=== PATIENT | male | born 1935 | race Caucasian/White ===

== ENCOUNTER → 2023-11-03 11:18 | Outpatient (REF) | payer OTHER, SELFPAY | LOC: HWRAD 11:18 | PROVIDERS: ATTENDING PHYSICIAN Physician Assistant | DX: R05.1 Acute cough (principal) | CPT/HCPCS: 71046 ==

== ENCOUNTER 2024-01-27 18:55 | Observation (INO) | payer OTHER, SELFPAY ==
[2024-01-27] VITALS (7 sets, daily range): BP systolic 132–194; BP diastolic 78–134; BMI 21.5
[2024-01-27 14:13] LABS: % Basophils 0.1 % (0-2); % Immature Granulocytes 0.1 % (0-0.5); % Lymphocytes 30.1 % (20.5-51.1); % Monocytes 10.3 % (1.7-9.3); % Neutrophils 58.4 % (42.2-75.2); Absolute Eosinophils 0.1 10^3/uL (0-0.7); Absolute Monocytes 0.7 10^3/uL (0.1-0.6); Absolute Neutrophils 3.9 10^3/uL (1.4-6.5); Hematocrit 36.2 % (39.0-52.0); Hemoglobin 12.1 g/dL (13.0-18.0); Mean Corp Hgb Conc. 33.4 g/dL (33.0-37.0); Mean Corpuscular Hgb 30.5 pg (27.0-31.0); Mean Corpuscular Volume 91.2 fL (80.0-94.0); Mean Platelet Volume 9.4 fL (7.4-10.4); Nucleated Red Blood Cells % 0 % (-); Platelet Count 283 10^3/uL (130-400); Red Blood Cell Count 3.97 10^6/uL (4.70-6.10); Red Cell Dist. Width 13.9 % (11.5-14.5); White Blood Cell Count 6.7 10^3/uL (4.8-10.8)
[2024-01-27 14:27] LABS: APTT 28.6 Sec (23.4-35.0)
[2024-01-27 14:40] LABS: ALT (SGPT) 20 U/L (0-50); AST (SGOT) 26 U/L (17-59); Albumin 3.9 g/dl (3.5-5.0); Alkaline Phosphatase 53 U/L (38-126); Blood Urea Nitrogen 22 mg/dl (9-20); Calcium 9.4 mg/dl (8.4-10.2); Carbon Dioxide 33 mmol/L (22-30); Chloride 98 mmol/L (98-107); Glucose 233 mg/dl (70-99); Potassium 4.4 mmol/L (3.5-5.1); Sodium 140 mmol/L (135-145); Total Bilirubin 0.4 mg/dl (0.2-1.3); Total Protein 6.3 g/dl (6.3-8.2); eGFR > 60.00
[2024-01-27 14:52] LABS: Troponin I < 0.012 ng/ml
--- NOTE | 2024-01-27 16:22 | ED.CVA ---
History of Present Illness
General
Chief Complaint: CVA/TIA Symptoms
Source: patient and family
Time Seen by Provider: 01/27/24 15:41
Onset of Stroke Symptoms
Onset of symptoms known: Yes
Date of onset of symptoms: 01/26/24
Time of onset of symptoms: 19:00
History of Present Illness
History of Present Illness:
89-year-old male with past medical history of paroxysmal atrial fibrillation, hypertension, hyperlipidemia, [id number] diabetes presenting to the emergency department for evaluation after family believes he may have had TIAs yesterday and
2 other times over the last 2 weeks. Family reports that last night after finishing dinner around 7 PM and upon getting up from the table family noticed that patient had a right-sided facial droop and right arm and leg weakness which lasted
approximately 5 minutes and then resolved with patient going back to his baseline and has been fine since. Over the last 2 weeks family is noticed similar instances 2 other times with symptoms lasting maybe only 2 to 3 minutes. Family contacted
primary care provider today who recommended patient come to the ER for further evaluation. Patient reports no symptoms at this time and family reports that patient is at his baseline.
Past History
Past History
ED Past Medical History: Arrthythmia, HTN, Hypercholesterolemia and NIDDM
ED Past Surgical History: Appendectomy
Social History
Tobacco: Non-smoker
Alcohol: None
Drug: None
Personal:
Living: with family
Review of Systems
Review of Systems
All Other Systems: ROS reviewed and negative except as documented in HPI and ROS
Phy Exam
Physical Exam
Physical Exam:
GENERAL: Alert , in no apparent distress
EYE: clear conjunctiva
NECK: Supple
ENT: o/p clr, mmm.
CARDIAC: Regular rate and rhythm .
LUNGS: Clear breath sounds bilaterally, no acute respiratory distress, no wheezes/rales/rhonchi
ABDOMEN: Soft, without focal tenderness, no r/g, no cvat
NEUROLOGICAL: Alert and oriented, no focal neuro deficits, MCKEE x 4, no ataxia. 5/5 strength UE/LE b/l
SKIN: Warm and dry, skin intact.
MUSCULOSKELETAL: No edema, well perfused.
PSYCH: Normal and appropriate interaction.
Scores
NIH Stroke Score
Level of Consciousness: 0 - Alert
LOC Questions: 0-Answers both correctly
LOC Commands: 0-Performs both correctly
Best Horizontal Gaze: 0-Normal
Visual Ramon: 0=Normal, no visual loss
Facial Palsy: 0=Normal, symmetrical
Motor - Right Arm: 0=No drift 10 seconds
Motor - Left Arm: 0=No drift 10 seconds
Motor - Right Le-No drift 5 seconds
Motor - Left Le-No drift 5 seconds
Limb Ataxia: 0-Absent
Sensation: 0-Normal
Best Language: 0-No aphasia
Dysarthria: 0-Normal
Extinction and Inattention: 0-No abnormality
Total Score:: 0
Heart Failure Risk
Heart Failure Risk Score: Not Applicable
Heart Score for Chest Pain Patients
STEMI patient?: Not applicable
Withdrawal Assessment of Alcohol
Withdrawal Assessment Completed?: Not applicable
Course
Orders/Labs/Results
Orders:
Orders
01/27/24 13:43
ECG [Electrocardiogram (*1)] Urgent
Reason for Study: TIA/Stroke
01/27/24 13:44
EKG- Treatment ONCE
01/27/24 14:07
Complete Blood Count/With Diff Urgent
Comprehensive Metabolic Panel Urgent
PTT Urgent
Troponin I Urgent
01/27/24 Dinner
Full Liquids
At Your Request: Limited Participation
Does patient need a safe tray?: No
01/27/24 16:17
Aspirin 325 mg PO NOW STA
01/27/24 17:03
CT Head & Neck Angio W/wo IV Urgent
Comment:
Reason For Exam: TIA, right sided weakness
01/27/24 17:46
Labetalol HCl [Trandate] 10 mg IV NOW STA
01/27/24 18:05
Admit/Transfer Patient As Directed
Co-Sign Provider:
Level of Care: Observation services
Assign to:: Telemetry
Physician / Group: Alexander Thompson
Diagnosis: CVA r/o
Reason for Telemetry: Arrhythmia
Date to Stop Telemetry: 01/30/24
Time to Stop Telemetry: 11:00
Reason for Hospitalization: Strokelike symptoms, concern for CVA versus TIA
PRN Pain Medication Management As Directed
May give lesser potent ordered pain med per pt: Yes
preference::
Protocol:: Medication orders for pain may be administered in a
manner that supports deferring to patient preference
when the pt is:
- Requesting an ordered lesser potent pain medication.
Least to most potent pain medications are defined
as: acetaminophen < NSAID < tramadol < opioids
(morphine, oxycodone, hydromorphone).
- Requesting a lesser dose of the same medication IF
ORDERED.
- Requesting a less intrusive route of administration
if both routes are prescribed by the provider (PO <
IV).
01/27/24 18:07
Code Status As Directed
Resuscitation Status: Full Code
01/27/24 18:13
NEUROLOGY CONSULT Routine
Consulting Provider: Manas Parra
Was physician already notified: Yes
Reason for consult: CVA r/o
NIH Stroke Scale As Directed
Directions: Per protocol
Comment: Q4
Neurological Checks As Directed
Frequency: q4h
01/27/24 19:34
Acetaminophen [Tylenol] 650 mg PO Q4HPRN PRN
Bisacodyl [Dulcolax] 10 mg RECTAL [id number] PRN
Docusate W/Senna [Senokot-S] 1 tablet PO BIDPRN PRN
HydrALAZINE [Apresoline] 10 mg IV Q4HPRN PRN
Polyethylene Glycol Powder [Miralax] 17 grams PO DAILYPRN PRN
01/27/24 19:34
Echo 2D MMode Color/Doppler Routine
Reason for Study: AF
Accucheck [Bedside Glucose Monitoring] As Directed
Frequency: AC&HS
Activity As Directed
Activity Level: Out of Bed-Early Mobility
Intake/ Output As Directed
Frequency: Per unit guidelines
Pneumatic Compression Sleeves As Directed
Type: Knee high
Vital Signs As Directed
Frequency: Per unit guidelines
DX Deep Vein Thrombosis Video Routine
01/27/24 20:00
Apixaban [Eliquis] 5 mg PO BID
Metoprolol [Lopressor] 75 mg PO BID
Pantoprazole [Protonix] 40 mg PO BID
01/28/24 06:18
Complete Blood Count/With Diff IN AM
01/28/24 07:30
Insulin Aspart Corrective Mod [Novolog Flexpen-Moderate Resistance] See Protocol SC AC
01/28/24 08:00
Aspirin Chewable [Low Strength Aspirin] 81 mg PO DAILY
Lisinopril [Zestril] 10 mg PO DAILY
01/28/24 18:00
Atorvastatin [Lipitor] 10 mg PO QPM
01/30/24 11:00
DC Protocol for Telemetry ONCE
Abnormal Lab Results
01/27/24 01/27/24
14:07 18:08
RBC 3.97 L 10^6/uL
(4.70-6.10)
Hgb 12.1 L g/dL
(13.0-18.0)
Hct 36.2 L %
(39.0-52.0)
Absolute Monos (auto) 0.7 H 10^3/uL
(0.1-0.6)
Monocytes % 10.3 H %
(1.7-9.3)
Carbon Dioxide 33 H mmol/L
(22-30)
BUN 22 H mg/dl
(9-20)
Glucose 233 H mg/dl
(70-99)
POC Glucose 149 H mg/dl
(70-99)
01/27/24 14:07
01/27/24 14:07
Vital Signs
Initial and Last Documented VS:
Initial Vital Signs
Temp Pulse Resp BP Pulse Ox
98.3 F 66 20 132/91 99
01/27/24 13:37 01/27/24 13:37 01/27/24 13:37 01/27/24 13:37 01/27/24 13:37
Last Documented Vital Signs
Temp Pulse Resp BP Pulse Ox
97.8 F 69 18 166/90 99
01/28/24 07:00 01/28/24 07:00 01/28/24 07:00 01/28/24 07:00 01/28/24 07:00
MDM/Problems Addressed
Differential Diagnosis Includes:
CVA/TIA, hypoglycemia, seizure, electrolyte abnormality, less concern for infection
MDM/Problems Addressed:
89-year-old male presenting to the emergency department for evaluation of possible TIA last night as well as 2 other episodes over the last 2 weeks. Presently asymptomatic. NIH score of 0. No stroke alert was called as symptoms were almost 24
hours ago and patient with NIH score of 0. Symptoms do seem to be somewhat consistent with TIA. Labs were initiated in triage. CT of the head ordered. Will consult with neurology to discuss further workup and potential treatment plan.
Chronic conditions affecting care: Arrhythmia
*Radiology
Radiology exam reviewed: radiology read reviewed
*Pulse Oximetry
Patient hypoxic: no
*EKG
Interpreted by ED Provider?: Yes
Heart Rate: 67
Rate: normal
Rhythm: sinus
[place]: normal axis
Ischemia: T-wave inversion (lateral leads)
*Education Counselor Interpretation
Rate: normal
Rhythm: sinus
*Critical Care Note
Total Time (30-74mins, 75-104mins- exclusive of procedures): Not Applicable
Data Reviewed
Review of Other/Old Records Reveals: Labs and Records
Source: patient, records, spouse and family
Patient Management
Discussion with other providers: Hospitalist
Escalation/DeEscalation of care consider admission/obs:
On multiple reevaluations patient has significant hypertension noted. There is also new T wave inversions in the lateral leads on his EKG. Given his presentation I do have concern for TIA and patient is anticoagulated on Eliquis. Patient also had
2 other incidences in addition to the incident yesterday. I do feel it would be best for patient to be closely monitored with consultation as needed. Labetalol 10 mg IV ordered for current hypertension. Hospitalist team is aware and accepts for
continued evaluation and treatment.
ED Attending Note
-
Portions of this chart may have been created with voice recognition software.� Occasional wrong word or��sound alike� substitutions may have occurred due to the inherent limitations of voice recognition software.
Discharge Plan
Departure
Patient Disposition: Admit
Date of Disposition: 01/27/24
Time of Disposition: 17:46
Presentation/result/management discussed w/ accepting MD/DO: Hospitalist
Discharge Problem:
Brain TIA, Hypertensive urgency
Interventions
Interventions:
*Risk Screen - Suicide Last Done: 01/27/24 20:13
*General Assessment Last Done: 01/27/24 13:37
*Neglect/Abuse Screening Last Done: 01/27/24 16:31
*ED COVID-19 Vaccine History Last Done: 01/27/24 20:13
*Nursing Disposition Last Done: 01/27/24 19:29
ED- Pulmonary Assessment Last Done: 01/27/24 16:15
ED- Neurological Assessment Last Done: 01/27/24 16:15
ED- Cardiac Assessment Last Done: 01/27/24 16:15
ED Swallowing Screen Last Done: 01/27/24 16:15
Discharge Date and Time
Discharge Date/Time: 01/27/24 19:34
[2024-01-27] MEDS: ASPIRIN 325 MG PO (16:33)
[2024-01-27] MEDS: TRANDATE 10 MG IV (17:55)
--- NOTE | 2024-01-27 18:01 | HPS.HSE ---
Family Physician
-
Family Physician: Tali Llanes MD
Chief Complaint
-
Family concern for TIA v CVA; facial droop and right extremity weakness for 5 mins
History of Present Illness
89-year-old male with paroxysmal AF (on Eliquis), NIDDM, HTN, HLD, GERD, s/p appendectomy that presented to the ED today with a complaint of possible strokes versus TIAs that occurred on 01/25, as well as to other times over the past 2 weeks.
History obtained by family in the ED, reportedly finished dinner around 7 PM yesterday and after getting up from the table noticed that the patient had a right-sided facial droop, right arm and leg weakness that lasted approximately 5 minutes.
Symptoms resolved with patient returning to baseline, has felt fine since that point. Similar symptoms occurred twice prior over the last 2 weeks, lasting roughly 2 to 3 minutes per episode. Family has spoke with her PCP today who recommended
coming to the ED for further evaluation. Denied any symptoms while in the ED, family reports that patient is currently at baseline. Hypertensive with BP 194/111 mmHg on arrival, otherwise stable and on room air without fever. Labs with hemoglobin
12.1, glucose 233, bicarb 33 otherwise unremarkable. ECG showed first-degree AVB, LAFB, signs of LVH as well as new T wave inversions in lead I and aVL. Troponin WNL. CTH without contrast, CTA head and neck without any obvious acute findings
including ICH or transcortical CVA on my preliminary read, does show fairly large ventricles. Was given aspirin 325 mg in the ED.
Upon speaking with the family they confirm symptoms previously mentioned, state they believe all 3 episodes have had right-sided deficits. Additionally they state that he has recently became much weaker and his ambulation is more difficult. They
describe a 'shuffling gait' and additionally describe recent urinary incontinence. Denies chest pain, dyspnea, fevers or chills, GI symptoms, urinary issues, bleeding or bruising
Medical History
Past Medical History
Past Medical History: Reports GERD, HTN, Hypercholesterolemia and NIDDM
Past Surgical History: Reports Appendectomy
Social History
Tobacco: Non-smoker
Alcohol: None
Drug: None
Family History
Family History: Not pertinent
Allergies / Home Medications
Allergies reflects when Allergies were last updated in [employer]
Home Medications with original date entered in [employer]
Allergy/Medication List:
Allergies
Allergy/AdvReac Type Severity Reaction Status Date / Time
oxycodone HCl [From Percocet] AdvReac Unknown Pharmacy Verified 01/27/24 13:37
to Review
Home Medications
Actos: 30 mg PO DAILY 10/14/14
metformin 1,000 mg tablet 1,000 mg PO BID 10/14/14
glimepiride 2 mg tablet 1 mg PO QPM 11/01/14
glimepiride 2 mg tablet 2 mg PO DAILY 11/01/14
apixaban 5 mg tablet (Eliquis) 5 mg PO BID #60 tabs 11/03/14
atorvastatin 10 mg tablet 10 mg PO QPM #30 tabs 11/03/14
lisinopril 5 mg tablet 5 mg PO DAILY #0 tabs 11/03/14
metoprolol tartrate 50 mg tablet 75 mg (1.5 x 50 mg) PO BID ##90 11/03/14
pantoprazole 40 mg tablet,delayed release 40 mg PO BID ##60 11/03/14
Review of Systems
-
A 12 point ROS was completed and negative except as noted: Yes
Constitutional: Reports No Symptoms
EENT: Reports No Symptoms
Respiratory: Reports No Symptoms
Cardiac: Reports No Symptoms
Abdomen/GI: Reports No Symptoms
: Reports No Symptoms
Musculoskeletal: Reports No Symptoms
Skin: Reports No Symptoms
Neurological: Reports See HPI
Endocrine: Reports No Symptoms
Hematologic/Lymphatic: Reports No Symptoms
Psych: Reports No Symptoms
Physical Exam
Vital Signs
Vital Signs
Temp Pulse Resp BP Pulse Ox
98.3 F 70 20 163/100 97
01/27/24 13:37 01/27/24 17:55 01/27/24 13:37 01/27/24 17:55 01/27/24 17:00
Physical Exam
General: Well Nourished, No Apparent Distress and Comfortable
HEENT: NormoCephalic, Anicteric and Moist mucous membranes
Respiratory: Clear and Non Labored Respirations; No Wheezes, Rales, Rhonchi or Accessory Resp Muscle Use
Cardiac: S1/S2 and Regular Rhythm; No Tachycardia, Murmur, Rub, Gallop, Peripheral Edema or JVD
GI: Soft, Non Tender, Non Distended, Normal Bowel Sounds and No Hepatosplenomegaly
Musculoskeletal: No Clubbing, No Cyanosis and Normal Gait & Station
Skin: Warm and Dry; No Rash
Neuro: AO x 3, Cranial Nerves Intact and No Sensory Deficits
Psych: Calm
Laboratory Results
-
01/27/24 14:07
01/27/24 14:07
Laboratory Results
APTT 28.6 Sec (23.4-35.0) 01/27/24 14:07
Total Bilirubin 0.4 mg/dl (0.2-1.3) 01/27/24 14:07
AST 26 U/L (17-59) 01/27/24 14:07
ALT 20 U/L (0-50) 01/27/24 14:07
Alkaline Phosphatase 53 U/L (38-126) 01/27/24 14:07
Troponin I < 0.012 ng/ml 01/27/24 14:07
Data Reviewed
-
CT Scan: Image Personally Visualized and interpreted, Discussed with Patient and Discussed with Family
Lab Data: Labs Reviewed by me, Discussed with Patient and Discussed with Family
Impression/Plan
-
#Strokelike symptoms
-Differential diagnoses include TIA/CVA versus hypertensive encephalopathy/PRES vs NPH (see below)
-Not a candidate for interventions such as thrombectomy or tPA as symptoms occurred and was 24 hours ago
-Does have a high ABCD2 score of 5 correlating with moderately high risk for recurrence or new CVA
-Acutely hypertensive with SBP >190 mmHg on arrival, signs of chronic hypertension and LVH on ECG
-He does have atrial fibrillation but is on Eliquis and states he is compliant
-CTH and CTA head and neck seem fairly unremarkable on my prelim read, results pending
-Status post full dose aspirin given in the emergency department
-Current NIHSS near 0
Plan
-Follow-up formal CT head and CTA head and neck reads
-Order MRI brain without contrast to assess for acute CVA
-Start daily baby aspirin empirically, consider high intensity statin if MRI positive
-PRN IV antihypertensives for BP goal reduction 25% over 24-hour
-Increase lisinopril to 10 mg to start tomorrow morning
-Neurochecks and NIHSS every 4 hours
-Neurology consult
-BG goal 140-180
-Consider TTE if MRI positive
#Concern for normal pressure hydrocephalus
#Enlarged cerebral ventricles
#Complaint of shuffling gait and urine incontinence
-Question if his symptoms could be contributed to normal pressure hydrocephalus
-Family does mention that he has recently developed shuffling gait and urine incontinence
-My prelim read of CT head shows what appears to be significantly enlarged ventricles
-Will consider LP while here if the above testing is negative, may consider even a positive
#Paroxysmal AF
-Home medications include metoprolol tartrate twice daily and Eliquis twice
-No known history of ablations or other EP interventions
-Continued on Eliquis, heart rate WNL
#NIDDM
-Home medications include metformin BID, glimepiride BID, pioglitazone
-No known microvascular complications
-Will hold home meds and start ISS with Accu-Cheks
-Blood glucose goal 140�180 for now
#Hypertension
-Suspect systemic complications with signs of LVH on ECG here
-Home medications include metoprolol tartrate and low-dose lisinopril
-Blood pressure management as above
-Plan to uptitrate lisinopril dose while here
#GERD
-No known history of PE or erosive disease
-Home medications include pantoprazole 40 mg twice daily
-No red flag symptoms at this time
DVT prophylaxis: Eliquis
Diet: Regular
CODE STATUS: Full code
[2024-01-27 18:09] LABS: Glucose - Point of Care 149 mg/dl (70-99)
[2024-01-27] MEDS: PROTONIX 40 MG PO (20:40)
[2024-01-27] MEDS: ELIQUIS 5 MG PO (20:40)
[2024-01-27] MEDS: LOPRESSOR 75 MG PO (20:40)
--- NOTE | 2024-01-27 20:45 | W.PN.UPDATE ---
Update Note
Progress Note Update
RN reported to PRINTER TECHNICIAN, patient passed swallow screen, will start on Regular diet
[2024-01-27 20:53] LABS: Glucose - Point of Care 203 mg/dl (70-99)
[2024-01-28 03:17] VITALS: BP 155/75
[2024-01-28 07:00] VITALS: BP 166/90
[2024-01-28 08:05] LABS: % Basophils 0.2 % (0-2); % Eosinophils 2.2 % (0-6); % Immature Granulocytes 0.4 % (0-0.5); % Lymphocytes 29.5 % (20.5-51.1); % Monocytes 13.2 % (1.7-9.3); % Neutrophils 54.5 % (42.2-75.2); Absolute Eosinophils 0.1 10^3/uL (0-0.7); Absolute Lymphocytes 1.6 10^3/uL (1.2-3.4); Absolute Monocytes 0.7 10^3/uL (0.1-0.6); Hematocrit 37.6 % (39.0-52.0); Hemoglobin 13.2 g/dL (13.0-18.0); Mean Corp Hgb Conc. 35.1 g/dL (33.0-37.0); Mean Corpuscular Hgb 30.6 pg (27.0-31.0); Mean Platelet Volume 11.4 fL (7.4-10.4); Nucleated Red Blood Cells % 0 % (-); Platelet Count 194 10^3/uL (130-400); Red Blood Cell Count 4.32 10^6/uL (4.70-6.10); Red Cell Dist. Width 13.8 % (11.5-14.5); White Blood Cell Count 5.5 10^3/uL (4.8-10.8)
[2024-01-28 08:20] LABS: Glucose - Point of Care 315 mg/dl (70-99)
[2024-01-28] MEDS: NOVOLOG FLEXPEN-MODERATE RESISTANCE 7 UNITS SC (08:48)
[2024-01-28] MEDS: LOPRESSOR 100 MG PO (08:51)
[2024-01-28] MEDS: ZESTRIL 30 MG PO (08:51)
[2024-01-28] MEDS: LOW STRENGTH ASPIRIN 81 MG PO (08:52)
[2024-01-28] MEDS: PROTONIX 40 MG PO (08:52)
[2024-01-28] MEDS: ELIQUIS 5 MG PO (08:53)
[2024-01-28 09:13] LABS: Blood Urea Nitrogen 16 mg/dl (9-20); Calcium 9.3 mg/dl (8.4-10.2); Carbon Dioxide 32 mmol/L (22-30); Chloride 98 mmol/L (98-107); Estimated Creatinine Clearance 55 ml/min; Glucose 234 mg/dl (70-99); Magnesium 1.6 mg/dl (1.6-2.3); Potassium 4.1 mmol/L (3.5-5.1); Sodium 143 mmol/L (135-145); eGFR > 60.00
[2024-01-28 11:00] VITALS: BP 147/93
--- NOTE | 2024-01-28 11:06 | W.PN.HOSP.TC ---
Today's Communication/Plan
-
Follow-up MRI brain
Assessment / Plan
Assessment / Plan
#Strokelike symptoms
-Differential diagnoses include TIA/CVA versus hypertensive encephalopathy/PRES vs NPH (see below)
-Does have a high ABCD2 score of 5 correlating with moderately high risk for recurrence or new CVA
-Acutely hypertensive with SBP >190 mmHg on arrival, signs of chronic hypertension and LVH on ECG
-CTH and CTA head and neck seem fairly unremarkable on my prelim read, results pending
-Status post full dose aspirin given in the emergency department
-Current NIHSS near 0, has been so since arrival
-Neurology following
Plan
-Follow-up formal CT head and CTA head and neck reads
-F/U MRI brain without contrast to assess for acute CVA
-C/w daily baby aspirin empirically, consider high intensity statin if MRI positive
-Continue with home antihypertensive regimen
-Neurochecks and NIHSS every 4 hours
-BG goal 140-180
-Consider TTE if MRI positive
#Concern for normal pressure hydrocephalus
#Enlarged cerebral ventricles
#Complaint of shuffling gait and urine incontinence
-Question if his symptoms could be contributed to normal pressure hydrocephalus
-Family does mention that he has recently developed shuffling gait and urine incontinence
-Plan to observe him walk and monitor for magnetic gait consistent with NPH
-Should consider LP as OP
#Paroxysmal AF
-Home medications include metoprolol tartrate twice daily and Eliquis twice
-No known history of ablations or other EP interventions
-Continued on Eliquis, heart rate WNL
#NIDDM
-Home medications include metformin daily and ISS
-No known microvascular complications
-Will hold home meds and start ISS with Accu-Cheks
-Blood glucose goal 140�180 for now
#Hypertension
-Suspect systemic complications with signs of LVH on ECG here
-Home medications include metoprolol tartrate, lisinopril, amlodipine
-Blood pressure management as above
-Plan to uptitrate regimen as needed here
-IV hydralazine ordered for SBP >170
#GERD
-No known history of PE or erosive disease
-Home medications include pantoprazole 40 mg twice daily
-No red flag symptoms at this time
DVT prophylaxis: Eliquis
Diet: Regular
CODE STATUS: Full code
Anticipated Discharge: Within 24 hours
Subjective/Interval History
-
Date of Service: January 28, 2024
Seen and examined at the bedside. No acute events reported overnight. AFVSS this morning.
Denies any recurrence of symptoms overnight. MRI performed, results pending
Denies chest pain, dyspnea, fevers or chills, lightheadedness, paresthesias or weakness, facial droop, aphasia, bleeding or bruising
Objective Data
-
Labs:
Laboratory Results
01/28/24 01/28/24
06:18 08:21
WBC 5.5
Hgb 13.2
Hct 37.6 L
Plt Count 194 D
Sodium Cancelled 143
Potassium Cancelled 4.1
Chloride Cancelled 98
Carbon Dioxide Cancelled 32 H
BUN Cancelled 16
Creatinine Cancelled 0.9
Glucose Cancelled 234 H
Calcium Cancelled 9.3
Vital Signs:
Vital Signs
Temp Pulse Resp BP Pulse Ox
97.8 F 69 18 166/90 99
01/28/24 07:00 01/28/24 07:00 01/28/24 07:00 01/28/24 07:00 01/28/24 07:00
I&O
01/27/24 01/28/24 01/29/24
06:59 06:59 06:59
Output Total 850 / 850
Balance -850 / -850
Review of Systems
-
History Source: Patient
All other systems: Reviewed and negative
Physical Exam
-
General: Well Developed, Well Nourished and No Apparent Distress
HEENT: Normocephalic, Atraumatic and Moist Mucous Membranes
Respiratory: Clear to Auscultation and Non Labored Respirations
Cardiac: Regular Rhythm and S1/S2; Negative Murmur, Rub or Gallop
GI: Soft, Nontender, Nondistended and Normal Bowel Sounds
Musculoskeletal: No Clubbing, No Cyanosis and No Edema
Skin: Warm and Dry; Negative Rash
Neuro: AO x 3, Nonfocal/Grossly Intact and Central Nerve's Intact
Psych: Calm
Data Reviewed
-
MRI: Discussed with Patient
Labs: Labs Reviewed by me and Discussed with Patient
[2024-01-28 12:02] LABS: Glucose - Point of Care 304 mg/dl (70-99)
[2024-01-28] MEDS: NOVOLOG FLEXPEN-HIGH RESISTANCE 10 UNITS SC (13:02)
[2024-01-28] MEDS: NOVOLOG FLEXPEN-MODERATE RESISTANCE SC (13:07)
--- NOTE | 2024-01-28 13:54 | W.DCSUMMARY ---
Discharge Summary
Discharge Data
Date of Admission: 01/27/24
Date of Discharge: 01/28/24
-
Pending Results: No
Hospital Course
89-year-old male with paroxysmal AF on Eliquis, NIDDM, HTN, GERD. Presented with intermittent and recurrent strokelike symptoms (right facial droop, RUE and RLE weakness/paresthesia) each lasting <5 minutes, x 3, over 2-week period. Most recent
episode was dinner the night prior to arrival in the ED. Was told by PCP to come to the ED after symptoms were explained. On arrival CTA without any acute findings including LVO or hemorrhage. NIHSS 0 while in the ED. Was acutely hypertensive
with systolic blood pressure near 200 mmHg. Started as needed IV medications for 25% BP reduction over first 24 hours, which was achieved. Was transition back onto his oral antihypertensive regimen. MRI showed leukoaraiosis send periventricular
pattern consistent with hypertensive/age-related changes. Was started on aspirin for empiric therapy of TIA. Statin dose increased. Blood pressure regimen modified with increasing lisinopril to 40 mg, amlodipine 10 mg nightly. Recommended home
BP recordings, home blood glucose recordings, with records Taken to Next Primary Care Appointment.
Of note, CT and MRI do show some signs of ventricular enlargement. Family mentions complaints of recent shuffling/magnetic gait as well as urinary incontinence. Should consider workup for normal pressure hydrocephalus. Additionally, he does have
a intermittent right hand tremor. NPH workup is unremarkable would consider Parkinson's testing.
Discharge Plan
-
Patient Disposition: Home (Routine Discharge)
Discharge Diagnosis/Procedures: TIA
Hypertensive emergency
Condition: Good
Diet: No added salt
Activity: As tolerated
Driving Restrictions: Not until seen by your Dr
Bathing Restrictions: None
Blood Work: Follow-up with family doctor in 1 to 2 weeks for repeat labs
Others Tests: None
Activity Restrictions/Additional Instructions:
Blood pressure monitoring: Record home blood pressures using a cuff 1-2 times daily, write down the values in a book, and take those with you to your primary care doctor/family doctor's appointment. Allow yourself 15 minutes to rest prior to taking
your blood pressure.
Blood glucose monitoring: Monitor blood glucose after meals and nightly, record values and a booklet, and take them with you to your family doctor appointment
Schedule follow-up appointment with family doctor for within 1 to 2 weeks after discharge from the hospital
Instructions: Transient ischemic attack, High blood pressure emergencies, DASH diet
Referrals:
Tali Llanes MD [Family Provider] -
Additional Discharge Medication Instructions: Start aspirin 81 mg daily
Start amlodipine 10 mg nightly
Increase atorvastatin to 40 mg nightly
Increase lisinopril to 40 mg daily
Continue other medications as currently prescribed. Follow-up with primary care physician for further refills after the first month
Prescriptions:
New
aspirin 81 mg Tablet,Chewable
81 mg PO DAILY 30 Days Qty: 30 0RF
amlodipine 10 mg Tablet
10 mg PO HS 30 Days Qty: 30 0RF
pantoprazole 40 mg Tablet,Delayed Release (Dr/Ec)
40 mg PO BID 30 Days Qty: 60 0RF
atorvastatin 40 mg tablet
40 mg PO HS 30 Days Qty: 30 0RF
lisinopril 40 mg tablet
40 mg PO DAILY 30 Days Qty: 30 0RF
Continued
metformin 1,000 MG tablet
1,000 mg PO DAILY
metoprolol tartrate 100 mg tablet
100 mg PO BID
famotidine 40 mg tablet
40 mg PO DAILY
amlodipine 10 mg tablet
10 mg PO HS
Patient Comments:
01/27/2024: family and pt unsure if pt is taking. Spouse and Family think hes still taking, but pt is unsure.
insulin aspart U-100 [Novolog FlexPen U-100 Insulin] 100 unit/mL (3 mL) insulin pen
0 - 12 sliding scale dose SC AC
Patient Comments:
01/27/2024: Sliding Scale: < 80= 0u; 80-120= 2u; 121-150= 4u; 151-200= 6u; 201-250= 8u; 251-300= 10u; >300= 12u
Eliquis 5 MG tablet
5 mg PO BID Qty: 60 3RF
Discontinued
lisinopril 30 mg tablet
30 mg PO HS
atorvastatin 10 MG tablet
10 mg PO DAILY
Discharge Orders:
Discharge Patient (As Directed); Ordered 01/28/24
Ordered By: Alexander Thompson
Discharge Date and Time
Print Language: LEBANESE
[2024-01-28 15:00] VITALS: BP 120/61
--- NOTE | 2024-01-28 15:05 | CM ---
CM met with Onesimo and his at bedside. They live together in a 2 story home with 1 entry step. 12 steps to the second level with a bathroom and bedrooms. 1st level has a powder room, kitchen, living area. His drives him to doctors
appointments and OP therapy (not current). VN services requested with VN. Referral to be sent via [facility] and Dr. Thompson will order VN services.
LANDRY letter provided, signed and placed on chart. Onesimo's was provided with a copy and questions answered regarding the financial implications of the Observation status.
Plan: Discharge to home with VN.
PCP: Tali Saldivar
[facility]
--- NOTE | 2024-01-29 22:02 | CON.NEURO4 ---
Consultation - Neurology 4
-
CONSULTING PHYSICIAN: Manas Parra MD(Neurology)
REFERRING PHYSICIAN: Hospitalist
DICTATED BY: Manas Parra MD
DATE/TIME OF REQUEST: 01/28/2024
DATE/TIME OF CONSULTATION: 01/28/2024
Reason for Consultation: Right sided weakness
History of Present Illness:
This is a 89 year old right) handed (male who has presented to the hospital with (chief complaint) of right sided weakness. He gives ah/o paroxysmal AF (on Eliquis), NIDDM, HTN, HLD, GERD, s/p appendectomy who had multiple episode of weakness on
01/25, as well as two other times over the past 2 weeks,
who presented to the ED today with a complaint of Right sided weakness
History as per family, he finished dinner around 7 PM yesterday and after getting up from the table they noticed that the patient had a right-sided facial droop, right arm and leg weakness that lasted approximately 5 minutes. Symptoms resolved with
patient returning to baseline, and asymptomatic since that point. Similar symptoms occurred twice over the last 2 weeks,with each episode lasting 2 to 3 minutes per episode. Family has spoke with her PCP today who recommended coming to the ED for
further evaluation. Denied any symptoms while in the ED, family reports that patient is currently at baseline.
Pat Hypertensive with BP 194/111 mmHg on arrival, on room air without fever. Labs revealed hemoglobin 12.1, glucose 233, bicarb 33 .
ECG showed first-degree AVB, LAFB, signs of LVH as well as new T wave inversions in lead I and aVL. Troponin WNL.
CT Head without contrast, CTA head and neck revealed no acute findings but does show large ventricles. Was given aspirin 325 mg in the ED.
. Additionally they state that he has become much weaker and has increasing difficulty walking. They describe a 'shuffling gait' and additionally new urinary incontinence. Denies chest pain, dyspnea, fevers or chills, GI symptoms, urinary issues,
bleeding or bruising
please mention last known well time.
-
Past Medical History: As above
Surgical History: NC
Family History: NC
Social History: Lives at home with his
Allergies: Oxycodone
Home Medications: See addendum
Review of Symptoms:
Patient denies any fever, headache, chest pain, shortness of breath, GI or symptoms.
�Per the HPI.�All systems are reviewed negative except above.
�-
Vital Signs:
The patient has a Temp 97.8 F Pulse 69 Resp 18 BP 166/90 Pulse Ox99
Physical Exam:
The patient is afebrile, heart sounds S1 and S2 are (regular / irregular), and chest is clear to auscultation bilaterally.
- If not clear, describe.
Neurologic Examination:
The patient is awake, alert and oriented x 3. (He is able to follow commands and answer questions appropriately. There is no aphasia or dysarthria. On cranial nerve assessment, pupils are 3 mm bilateral, round and reactive to light and
accommodation. Visual ge are full. Extraocular movements are intact. Facial sensations are intact and bilaterally symmetrical, there is no facial asymmetry. Hearing is intact bilaterally to normal conversation volume. Tongue palate and uvula
are midline. Sternocleidomastoid strengths are full bilaterally.
Motor strengths are 4/5 bilateral upper and lower extremities on medical research [place] scale. There is no drift or involuntary movement noted.
Deep tendon reflexes are 2+ bilateral upper and lower extremities and Babinski is absent bilaterally.
Sensations of pain, touch, temperature and vibration are intact and bilaterally symmetrical. There was no extinction noted on double simultaneous stimulation. Coordination is intact by finger to nose bilaterally. Romberg +. Gait assisted.
Lab Results: See addendum
Neuro Imaging: Atrophy. Small vessel disease. Mild ventriculomegaly. [id number] spinal stenosis with cord impression
Impression:
(Mr. / Ms.) DELFINO VENTURA is a 89 year old M who has presented to the hospital with (symptoms/chief complaint).
Differentials for the patient's presentation include:
1. TIA
2. Cervical radiculopathy
3. Hypertensive crisis
Recommendations:
1. Aspirin
2. BP management
3. PT/OT gait training
Discussed patient care with:
== END 2024-01-28 15:48 | disposition home health service (06) ==
LOC: 4 EAST ACU 18:55
PROVIDERS: Emergency Medicine; ADMITTING PHYSICIAN Internal Medicine; CONSULT PHYSICIAN Psychiatry & Neurology Neurology; EMERGENCY PHYSICIAN Emergency Medicine; FAMILY PHYSICIAN Student in an Organized Health Care Education/Training Program
DX: G45.9 Transient cerebral ischemic attack, unspecified (principal); I16.1 Hypertensive emergency; R29.810 Facial weakness; I48.0 Paroxysmal atrial fibrillation; R26.2 Difficulty in walking, not elsewhere classified; I10 Essential (primary) hypertension; E11.9 Type 2 diabetes mellitus without complications; E78.00 Pure hypercholesterolemia, unspecified; R53.1 Weakness; K21.9 Gastro-esophageal reflux disease without esophagitis; I44.4 Left anterior fascicular block; I70.90 Unspecified atherosclerosis; M50.01 Cervical disc disorder with myelopathy, high cervical region; M48.02 Spinal stenosis, cervical region; Q28.3 Other malformations of cerebral vessels; I67.81 Acute cerebrovascular insufficiency; M47.812 Spondylosis without myelopathy or radiculopathy, cervical region; R32 Unspecified urinary incontinence; R25.1 Tremor, unspecified; Z79.01 Long term (current) use of anticoagulants; Z88.5 Allergy status to narcotic agent; Z90.49 Acquired absence of other specified parts of digestive tract; Z79.84 Long term (current) use of oral hypoglycemic drugs
CPT/HCPCS: 70496; 70498; 70551; 80048; 80053; 82962; 83735; 84484; 85025; 85730; 93005; 96374; 99285; G0378; Q9967

== ENCOUNTER → 2024-05-01 08:58 | Outpatient (REF) | payer OTHER, SELFPAY ==
[2024-05-01 11:11] LABS: % Basophils 0.4 % (0-2); % Eosinophils 4.6 % (0-6); % Immature Granulocytes 0.3 % (0-0.5); % Lymphocytes 33.7 % (20.5-51.1); % Monocytes 12.6 % (1.7-9.3); % Neutrophils 48.4 % (42.2-75.2); Absolute Eosinophils 0.3 10^3/uL (0-0.7); Absolute Lymphocytes 2.3 10^3/uL (1.2-3.4); Absolute Monocytes 0.9 10^3/uL (0.1-0.6); Absolute Neutrophils 3.3 10^3/uL (1.4-6.5); Hematocrit 37.6 % (39.0-52.0); Hemoglobin 12.5 g/dL (13.0-18.0); Mean Corp Hgb Conc. 33.2 g/dL (33.0-37.0); Mean Corpuscular Hgb 31.3 pg (27.0-31.0); Mean Platelet Volume 9.7 fL (7.4-10.4); Nucleated Red Blood Cells % 0 % (-); Platelet Count 295 10^3/uL (130-400); Red Cell Dist. Width 12.8 % (11.5-14.5); White Blood Cell Count 6.7 10^3/uL (4.8-10.8)
[2024-05-01 12:05] LABS: ALT (SGPT) 16 U/L (0-50); AST (SGOT) 23 U/L (17-59); Albumin 4.2 g/dl (3.5-5.0); Alkaline Phosphatase 73 U/L (38-126); Blood Urea Nitrogen 23 mg/dl (9-20); Calcium 9.2 mg/dl (8.4-10.2); Carbon Dioxide 30 mmol/L (22-30); Chloride 99 mmol/L (98-107); Glucose 240 mg/dl (70-99); Glycohemoglobin (HgbA1c) 8.6 % (4.0-5.6); Potassium 4.4 mmol/L (3.5-5.1); Sodium 138 mmol/L (135-145); Total Bilirubin 0.6 mg/dl (0.2-1.3); Total Protein 6.8 g/dl (6.3-8.2); eGFR > 60.00
[2024-05-01 14:07] LABS: Microalbumin, Random Urine 4.8 mg/dl (0.6-1.7); Microalbumin/creatinine Ratio 35.6 mg/g
== END ==
LOC: HWLAB 08:58
PROVIDERS: ATTENDING PHYSICIAN Internal Medicine
DX: E11.9 Type 2 diabetes mellitus without complications (principal)
CPT/HCPCS: 36415; 80053; 82043; 82570; 83036; 85025

== ENCOUNTER → 2024-08-28 09:35 | Outpatient (REF) | payer OTHER, SELFPAY ==
[2024-08-28 13:27] LABS: Glycohemoglobin (HgbA1c) 8.7 % (4.0-5.6)
== END ==
LOC: HWLAB 09:35
PROVIDERS: ATTENDING PHYSICIAN Internal Medicine
DX: E11.9 Type 2 diabetes mellitus without complications (principal)
CPT/HCPCS: 36415; 83036

== ENCOUNTER → 2024-12-06 09:33 | Outpatient (REF) | payer OTHER, SELFPAY ==
[2024-12-06 11:39] LABS: ALT (SGPT) 25 U/L (0-50); AST (SGOT) 31 U/L (17-59); Albumin 4.3 g/dl (3.5-5.0); Alkaline Phosphatase 62 U/L (38-126); Blood Urea Nitrogen 14 mg/dl (9-20); Calcium 9.6 mg/dl (8.4-10.2); Carbon Dioxide 34 mmol/L (22-30); Chloride 104 mmol/L (98-107); Glucose 102 mg/dl (70-99); Potassium 4.4 mmol/L (3.5-5.1); Sodium 143 mmol/L (135-145); Total Protein 7.3 g/dl (6.3-8.2); eGFR > 60.00
[2024-12-07 08:54] LABS: Glycohemoglobin (HgbA1c) 8.0 % (4.0-5.6)
== END ==
LOC: REG 09:33
PROVIDERS: ATTENDING PHYSICIAN Internal Medicine
DX: E11.9 Type 2 diabetes mellitus without complications (principal)
CPT/HCPCS: 36415; 80053; 83036

== ENCOUNTER 2025-01-06 09:05 | Outpatient (RCR) | payer OTHER, SELFPAY | END 2025-01-06 23:59 | disposition home or self-care (01) | LOC: RPT 09:05 | PROVIDERS: ATTENDING PHYSICIAN Internal Medicine | DX: M54.51 Vertebrogenic low back pain (principal); R26.81 Unsteadiness on feet; Z73.6 Limitation of activities due to disability; R26.2 Difficulty in walking, not elsewhere classified; G89.29 Other chronic pain; M62.81 Muscle weakness (generalized); R26.89 Other abnormalities of gait and mobility | CPT/HCPCS: 97010; 97110; 97162; 97530 ==

== ENCOUNTER 2025-02-07 09:17 | Outpatient (RCR) | payer OTHER, SELFPAY | END 2025-02-07 23:59 | disposition home or self-care (01) | LOC: RPT 09:17 | PROVIDERS: ATTENDING PHYSICIAN Internal Medicine | DX: M54.51 Vertebrogenic low back pain (principal); M62.81 Muscle weakness (generalized); R26.89 Other abnormalities of gait and mobility; R26.81 Unsteadiness on feet; Z73.6 Limitation of activities due to disability; G89.29 Other chronic pain | CPT/HCPCS: 97110; 97112; 97116; 97530 ==

== ENCOUNTER → 2025-03-04 10:03 | Outpatient (REF) | payer OTHER, SELFPAY | LOC: RCS 10:03 | PROVIDERS: ATTENDING PHYSICIAN Nurse Practitioner Gerontology; FAMILY PHYSICIAN Internal Medicine | DX: I48.0 Paroxysmal atrial fibrillation (principal) | CPT/HCPCS: 93225; 93226 ==

== ENCOUNTER → 2025-03-05 10:36 | Outpatient (REF) | payer OTHER, SELFPAY ==
[2025-03-05 13:23] LABS: Glycohemoglobin (HgbA1c) 8.2 % (4.0-5.9)
== END ==
LOC: REG 10:36
PROVIDERS: ATTENDING PHYSICIAN Internal Medicine
DX: E11.9 Type 2 diabetes mellitus without complications (principal)
CPT/HCPCS: 36415; 83036

== ENCOUNTER 2025-03-07 06:59 | Outpatient (RCR) | payer OTHER, SELFPAY | END 2025-03-07 23:59 | disposition home or self-care (01) | LOC: RPT 06:59 | PROVIDERS: ATTENDING PHYSICIAN Internal Medicine | DX: M54.51 Vertebrogenic low back pain (principal); G89.29 Other chronic pain; M62.81 Muscle weakness (generalized); R26.89 Other abnormalities of gait and mobility; R26.81 Unsteadiness on feet; Z73.6 Limitation of activities due to disability | CPT/HCPCS: 97110; 97112 ==

== ENCOUNTER → 2025-04-09 14:45 | Outpatient (REF) | payer OTHER, SELFPAY | LOC: RCS 14:45 | PROVIDERS: ATTENDING PHYSICIAN Internal Medicine Cardiovascular Disease; FAMILY PHYSICIAN Internal Medicine | DX: I34.0 Nonrheumatic mitral (valve) insufficiency (principal) | CPT/HCPCS: 93306 ==